=== PATIENT | female | born 1995 | race African-American/Black ===

== ENCOUNTER 2023-11-29 07:59 | Emergency (ER) | payer OTHER ==
[2023-11-29] MEDS ORDERED: Acetaminophen 500 MG TAB ONE (08:51)
== END 2023-11-29 09:54 | disposition home or self-care (01) ==
LOC: ERS 07:59
DX: S60.212A Contusion of left wrist, initial encounter (principal); S00.81XA Abrasion of other part of head, initial encounter; V53.5XXA Driver of pick-up truck or van injured in collision with car, pick-up truck or van in traffic accident, initial encounter; Y99.0 Civilian activity done for income or pay